=== PATIENT | female | born 1960 | race Caucasian/White ===

== ENCOUNTER 2017-10-29 21:58 | Emergency (ER) | payer OTHER ==
[~2017-10-29] VITALS: Ht 170.2 cm; Wt 74.8 kg
[~2017-10-29 21:58] MED LIST: ACETAMINOPHEN-1 EAC1 PO; AFRIN15 ML NS; ALBUTEROL INHAL17 GM IH; ATORVASTATIN CA40 MG PO; AUGMENTIN 875875 MG PO; CELEXA20 MG PO; CHERATUSSIN AC118 ML PO; CRUTCH1 EACH MC; HYDROCODONE-AP1 EAC6 PO; LISINOPRIL10 MG PO; MEDROLDOSEPACK PO; PREDNISONE 20 M20 MG PO; PROMETHAZINE D480 ML PO; PROVENTIL IH; SINGULAIR 10 MG10 M1 PO; TESSALON PERLE100 MG PO; VICODIN; ZPAK PO
[2017-10-29] MEDS ORDERED: SUBOXONE 4 MG-1 EACH (22:07)
[2017-10-29 22:31] LABS: ABSOLUTE EOSINOPHILS 0.2 thou/uL (0.0-0.7); ABSOLUTE LYMPHOCYTES 2.9 thou/uL (0.8-5.3); ABSOLUTE MONOCYTES 0.6 thou/uL (0.0-1.2); ABSOLUTE NEUTROPHILS 2.9 thou/uL (1.6-8.1); BASOPHILS 0.5 %; EOSINOPHILS 2.7 %; HEMATOCRIT 40.5 % (37.0-47.0); HEMOGLOBIN 13.7 gm/dL (12.0-15.0); LYMPHOCYTES 44.5 %; MCH 31.1 pg (26.0-34.0); MCHC 33.8 g/dL (28.0-37.0); MCV 91.9 fL (80.0-100.0); MONOCYTES 8.5 %; MPV 6.8 fl. (7.2-11.1); NUCLEATED RBCS 0 /100WBC; PLATELET COUNT* 280 thou/uL (150-400); POLYS 43.8 %; RBC 4.41 mil/uL (4.20-5.00); RDW-CV 12.8 % (10.5-14.5); WBC 6.6 thou/uL (4.0-11.0)
[2017-10-29 22:35] LABS: ANION GAP 4 mmol/L (7-16); BUN 8 mg/dL (7-18); CALCIUM 8.7 mg/dL (8.5-10.1); CHLORIDE 100 mmol/L (98-107); CO2 30 mmol/L (21-32); CREATININE 0.9 mg/dL (0.6-1.3); GLUCOSE 115 mg/dL (70-99); POTASSIUM 3.9 mmol/L (3.5-5.1); SODIUM 134 mmol/L (136-145)
[2017-10-29 22:37] LABS: PROTIME 9.4 Seconds (9.20-11.50)
[2017-10-29 22:42] LABS: URINE BILIRUBIN NEGATIVE (Negative); URINE BLOOD NEGATIVE (Negative); URINE CLARITY CLEAR; URINE COLOR YELLOW; URINE GLUCOSE-RANDOM NEGATIVE (Negative); URINE KETONES NEGATIVE (Negative); URINE LEUKOCYTES-REFLEX NEGATIVE (Negative); URINE NITRITE-REFLEX NEGATIVE (Negative); URINE PROTEIN NEGATIVE (Negative); URINE SPECIFIC GRAVITY <= 1.005 (1.005-1.030); URINE UROBILINOGEN 0.2 E.U./dl (0.2-1.0)
[2017-10-29 22:46] LABS: ALBUMIN 3.3 g/dL (3.4-5.0); ALKALINE PHOSPHATASE 95 U/L (46-116); MAGNESIUM 1.8 mg/dL (1.8-2.4); NT-PRO BRAIN NAT PEPTIDE 237 pg/mL (<300); SGOT 19 U/L (15-37); SGPT 21 U/L (30-65); TOTAL BILIRUBIN 0.3 mg/dL (<0.1-1.0); TOTAL PROTEIN 6.7 g/dL (6.4-8.2); TROPONIN-I LEVEL <0.06 ng/mL (<0.06)
[2017-10-29 22:49] LABS: AMP/METHAMP Negative (Negative); BARBITURATES Negative (Negative); BENZODIAZEPINES Negative (Negative); COCAINE Negative (Negative); METHADONE Negative (Negative); OPIATES Negative (Negative); PCP Negative (Negative); THC Negative (Negative)
[2017-10-29 23:56] VITALS: BP 112/62
--- NOTE | 2017-10-30 10:49 | EKG ---
[place] [address] ELECTROCARDIOGRAM REPORT Name: SIRISHA GARCIA [id number] Admission: 10/29/17 Attend Phys: Discharge: 10/29/17 Date of : 58 Report #: [id number] THIS REPORT FOR: //name// [facility] ED Test Date: 2017-10-29 Test Time: 22:24:22 Pat Name: SIRISHA GARCIA Department: Room: Gender: F [place]: [place]EL : 1960 Requested By: Sonam Mccullough Order Number: [id number] MD: Oc Edmond Measurements Intervals [place] Rate: 65 P: 42 [place]: 158 QRS: 33 QRSD: 104 T: 61 QT: 423 QTc: 440 Interpretive Statements Sinus rhythm Low voltage, precordial leads No previous ECG available for comparison Electronically Signed On 10-30-2017 10:49:06 CDT by Oc Edmond [email or web address] <ELECTRONICALLY SIGNED> By: Oc Edmond MD, [facility] 10/30/17 1049 [id number] 23 Oc Edmond MD, FACC /EPI
== END 2017-10-29 23:58 | disposition home or self-care (01) ==
LOC: M.ERS 21:58
PROVIDERS: Emergency Medicine
DX: R53.83 Other fatigue (principal); R42 Dizziness and giddiness; R41.0 Disorientation, unspecified; J45.909 Unspecified asthma, uncomplicated; Z90.710 Acquired absence of both cervix and uterus; Z91.041 Radiographic dye allergy status

== ENCOUNTER 2018-03-26 10:13 | Emergency (ER) | payer OTHER ==
[~2018-03-26] VITALS: Ht 170.2 cm; Wt 81.7 kg
[~2018-03-26 10:13] MED LIST changes: +SUBOXONE 4 MG-1 EACH
[2018-03-26] MEDS ORDERED: NORCO 5-325 TA1 EACH PO (10:23)
[2018-03-26] MEDS ORDERED: LISINOPRIL10 MG PO (10:24)
[2018-03-26] MEDS ORDERED: ZYRTEC10 M5 PO (10:24)
[2018-03-26] MEDS ORDERED: LIPITOR 20 MG T20 M1 PO (10:24)
[2018-03-26] MEDS ORDERED: FISH OIL 1,001000 M2 PO (10:25)
[2018-03-26 10:36] LABS: HEMATOCRIT 38.5 % (37.0-47.0); MCH 31.4 pg (26.0-34.0); MCHC 33.7 g/dL (28.0-37.0); MCV 93.2 fL (80.0-100.0); MPV 7.1 fl. (7.2-11.1); NUCLEATED RBCS 0 /100WBC; PLATELET COUNT* 261 thou/uL (150-400); RBC 4.14 mil/uL (4.20-5.00)
[2018-03-26 10:48] LABS: ANION GAP 14 mmol/L (7-16); APTT 27.1 Seconds (25.0-31.3); BUN 9 mg/dL (7-18); CALCIUM 8.6 mg/dL (8.5-10.1); CHLORIDE 98 mmol/L (98-107); CO2 21 mmol/L (21-32); GLUCOSE 184 mg/dL (70-99); INR 0.9; POTASSIUM 3.7 mmol/L (3.5-5.1); PROTIME 9.7 Seconds (9.20-11.50); SODIUM 133 mmol/L (136-145)
[2018-03-26 10:59] LABS: ABSOLUTE LYMPHOCYTES 0.7 thou/uL (0.8-5.3); ABSOLUTE MONOCYTES 0.1 thou/uL (0.0-1.2); ABSOLUTE NEUTROPHILS 13.2 thou/uL (1.6-8.1); ATYPICAL LYMPHS 1 %
[2018-03-26 11:00] LABS: PLATELET ESTIMATE ADEQUATE
[2018-03-26 11:08] LABS: ALBUMIN 3.8 g/dL (3.4-5.0); ALKALINE PHOSPHATASE 96 U/L (46-116); CK-MB MASS 3.1 ng/mL (<0.5-3.6); LIPASE 91 U/L (73-393); NT-PRO BRAIN NAT PEPTIDE 1749 pg/mL (<300); SGOT 21 U/L (15-37); SGPT 20 U/L (30-65); TOTAL BILIRUBIN 0.6 mg/dL (<0.1-1.0); TOTAL PROTEIN 7.1 g/dL (6.4-8.2); TROPONIN-I LEVEL <0.06 ng/mL (<0.06)
[2018-03-26 12:15] VITALS: BP 132/70
--- NOTE | 2018-03-26 15:49 | EKG ---
[place] [address] ELECTROCARDIOGRAM REPORT Name: SIRISHA GARCIA [facility] [id number] Admission: 03/26/18 Attend Phys: Discharge: 03/26/18 Date of : 58 Report #: [id number] THIS REPORT FOR: //name// [facility] ED Test Date: 2018-03-26 Test Time: 10:19:49 Pat Name: SIRISHA GARCIA Department: Room: Gender: F [employer]: [facility] : 1960 Requested By: Kevon Naylor Order Number: [id number] MD: Oc Edmond Measurements Intervals [place] Rate: 80 P: 40 [place]: 147 QRS: 42 QRSD: 102 T: 53 QT: 439 QTc: 507 Interpretive Statements Sinus rhythm Borderline prolonged QT interval Compared to ECG 10/29/2017 22:24:22 No significant changes Electronically Signed On 03-26-2018 15:48:50 [employer] by Oc Edmond [email or web address] <ELECTRONICALLY SIGNED> By: Oc Edmond MD, [facility] 03/26/18 1548 [id number] [id number] Oc Edmond MD, FACC /EPI
== END 2018-03-26 12:19 | disposition left against medical advice (07) ==
LOC: M.ERS 10:13
PROVIDERS: Family Medicine
DX: R07.89 Other chest pain (principal); J44.9 Chronic obstructive pulmonary disease, unspecified; M54.9 Dorsalgia, unspecified; G89.29 Other chronic pain; Z90.710 Acquired absence of both cervix and uterus; Z91.041 Radiographic dye allergy status